=== PATIENT | male | born 1975 | race Hispanic/Latino ===

== ENCOUNTER 2017-10-18 09:05 | Observation (INO) | payer OTHER ==
[2017-10-18] MEDS ORDERED: Vancomycin 1gm in NS 250ml 1 GM/250 ML BAG IVPB STA (09:33)
[2017-10-18] MEDS ORDERED: DiphenhydrAMINE 50 mg/ml Inj IVP STA (09:33)
--- NOTE | 2017-10-18 09:34 | ED PDOC ---
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 anterior aguirre itching/swelling and pain which progress to the lower anterior aguirre region, no pain or swelling on the posterior calf or thigh region, no knee pain, no fever or chills, no headache or night sweat, no difficulty walking, no other medical or psychiatric complaints. Past Medical History - Provider Review Nursing Documentation Reviewed: Yes - Infectious Disease Hx of Infectious Diseases: None - Tetanus Immunization Tetanus Immunization: Unknown - Cardiac Hx Cardiac Disorders: Yes Hx Hypertension: Yes - Pulmonary Hx Respiratory Disorders: Yes Hx Asthma: Yes Hx Chronic Obstructive Pulmonary Disease (COPD): Yes - Neurological Hx Neurological Disorder: Yes HX Cerebrovascular Accident: Yes - HEENT Hx HEENT Disorder: No - Renal Hx Renal Disorder: No - Endocrine/Metabolic Hx Endocrine Disorders: No - Hematological/Oncological Hx Blood Disorders: No - Integumentary Hx Dermatological Disorder: No - Musculoskeletal/Rheumatological Hx Musculoskeletal Disorders: No - Gastrointestinal Hx Gastrointestinal Disorders: Yes - Genitourinary/Gynecological Hx Genitourinary Disorders: No - Psychiatric Hx Psychophysiologic Disorder: No Hx Substance Use: No - Surgical History Hx Cardiac Catheterization: Yes Hx Valve Replacement: Yes Other/Comment: HERNIA REPAIR - Anesthesia Hx Anesthesia: Yes Hx Anesthesia Reactions: No Hx Malignant Hyperthermia: No - Suicidal Assessment Feels Threatened In Home Enviroment: No Family/Social History - Physician Review Nursing Documentation Reviewed: Yes Family/Social History: Unknown Family HX Smoking Status: Never Smoked Hx Alcohol Use: No Hx Substance Use: No Hx Substance Use Treatment: No Allergies/Home Meds Allergies/Adverse Reactions: Allergies No Known Allergies Allergy (Verified 10/18/17 09:09) Home Medications: Home Meds Medication Instructions Recorded Confirmed Fluticasone/Umeclidin/Vilanter 1 puff NEB DAILY 10/18/17 10/18/17 [Trelesofie Ellipta 100-62.5-25] Review of Systems - Review of Systems Constitutional: absent: Fatigue, Fevers Eyes: absent: Vision Changes ENT: absent: Hearing Changes Respiratory: absent: SOB, Cough Cardiovascular: absent: Chest Pain Gastrointestinal: absent: Abdominal Pain, Nausea, Vomiting Skin: Rash, Pruritis, Skin Lesions, Cellulitis. absent: Laceration, Abscess, Ulcer Neurological: absent: Headache, Dizziness Psychiatric: absent: Anxiety, Depression, Suicidal Ideation Physical Exam Vital Signs Reviewed: Yes Vital Signs Temp Pulse Resp BP Pulse Ox 10/18/17 09:10 98.7 F 86 16 145/83 96 Temperature: Afebrile Blood Pressure: Normal Pulse: Regular Respiratory Rate: Normal Appearance: Positive for: Well-Appearing, Non-Toxic, Comfortable Pain Distress: Mild Mental Status: Positive for: Alert and Oriented X 3 - Systems Exam Head: Present: Atraumatic, Normocephalic Pupils: Present: PERRL Extroacular Muscles: Present: EOMI Conjunctiva: Present: Normal Mouth: Present: Moist Mucous Membranes Neck: Present: Normal Range of Motion Respiratory/Chest: Present: Clear to Auscultation, Good Air Exchange. No: Respiratory Distress, Accessory Muscle Use Cardiovascular: Present: Regular Rate and Rhythm, Normal S1, S2. No: Murmurs Abdomen: No: Tenderness, Distention, Peritoneal Signs Back: Present: Normal Inspection Upper Extremity: Present: Normal Inspection. No: Cyanosis, Edema Lower Extremity: Present: Normal Inspection, NORMAL PULSES, Normal ROM, Neurovascularly Intact, Capillary Refill < 2 s, Other (Lt. lower extremity: visible anterior proximal 1/3 of the aguirre noted to have erythematous with visible swelling hive region approx. [id number] but warmth spreading to the distal 1/3 of the aguirre with pink color rash but no circumferential rash, negative randee and wyman signs, FROM without limitation, sensation intact, motor 5/5, +DPPT pulses, capillary refill< 2 seconds, neurovascular intact. ). No: Edema, CALF TENDERNESS, Randee's Sign, Deformity Neurological: Present: GCS=15, CN II-XII Intact, Speech Normal Skin: Present: Warm, Dry, Normal Color. No: Rashes Psychiatric: Present: Alert, Oriented x 3, Normal Insight, Normal Concentration Medical Decision Making ED Course and Treatment: 10/18/17 09:40 Differential: cellulitis vs. dermatitis vs. gout -labs/ua -Lt. knee xray -IV vancomycin/toradol/benadryl -Observe and reassess 10/18/17 11:40 -Labs are non-significant with no elevation of wbc -Lt. knee xray show Normal radiographs of the left knee. -Lt. lower extremity erythematous is persistent, will need observation for IV antibiotic, blood cultures ordered. -I discussed all labs/radiology result with the patient, he agreed to be admitted for observation and IV antibiotic due to the extensive of the cellulitis. -I spoke to Dr. Vidal, covering doctor for Dr. Carnes, discussed about the case/labs/radiology result, agreed to admit to her service with Dr. Parsons for routine consult, consult ordered. -Dr. Quiles would put in the admission order. - Lab Interpretations Lab Results: 10/18/17 10:10 10/18/17 10:10 Lab Results 10/18/17 10:10: WBC 10.3, RBC 5.02, Hgb 14.6, Hct 41.5 L, MCV 82.7, MCH 29.1, MCHC 35.2, RDW 13.5, Plt Count 247, MPV 8.7, Gran % 71.0 H, Lymph % (Auto) 19.7 L, Harmon % (Auto) 7.8 H, Eos % (Auto) 1.2 L, Baso % (Auto) 0.3, Gran # 7.34 H, Lymph # (Auto) 2.0, Harmon # (Auto) 0.8 H, Eos # (Auto) 0.1, Baso # (Auto) 0.03 10/18/17 10:10: Sodium 140, Potassium 4.1, Chloride 100, Carbon Dioxide 28, Anion Gap 16, BUN 18, Creatinine 0.9, Est GFR ( Amer) > 60, Est GFR (Non- Af Amer) > 60, Random Glucose 114 H, Uric Acid 7.4, Calcium 9.6, Total Bilirubin 0.5, AST 26, ALT 44, Alkaline Phosphatase 62, Total Protein 7.9, Albumin 4.5, Globulin 3.4, Albumin/Globulin Ratio 1.3 I have reviewed the lab results: Yes - RAD Interpretation Radiology Orders: 10/18/17 09:33 KNEE WITH PATELLA LEFT 3 VIEW [RAD] Stat Date of service: 10/18/2017 PROCEDURE: Left Knee and patella Radiographs. HISTORY: Pain. COMPARISON: None. FINDINGS: BONES: Normal. No fracture. JOINTS: Normal. No osteoarthritis. JOINT EFFUSION: None. OTHER FINDINGS: None. IMPRESSION: Normal radiographs of the left knee. Group Segment Consultant: Radiologist - Medication Orders Current Medication Orders: Discontinued Medications Diphenhydramine HCl (Benadryl) 50 mg IVP STAT STA Stop: 10/18/17 09:34 Last Admin: 10/18/17 10:10 Dose: 50 mg IVP Administration Document 10/18/17 10:10 MOON (Rec: 10/18/17 10:10 MOON [id number]) Charges for Administration # of IVP Administrations 1 Vancomycin HCl (Vancomycin 1gm) 1 gm in 250 mls @ 167 mls/hr IVPB STAT STA PRN Reason: Protocol Stop: 10/18/17 11:02 Last Admin: 10/18/17 10:11 Dose: 167 mls/hr eMAR Start Stop Document 10/18/17 10:11 MOON (Rec: 10/18/17 10:11 MOON [id number]) Intravenous Solution Start Date 10/18/17 Start Time 10:11 End Date 10/18/17 End time 11:41 Total Infusion Time 90 Ketorolac Tromethamine (Toradol) 30 mg IVP STAT STA Stop: 10/18/17 09:34 Last Admin: 10/18/17 10:10 Dose: 30 mg MAR Pain Assessment Document 10/18/17 10:10 LA (Rec: 10/18/17 10:11 MOON [id number]) Pain Reassessment Is this a pain reassessment? No Sleep Is patient sleeping during reassessment? 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 Disposition/Present on Arrival - Present on Arrival Any Indicators Present on Arrival: No History of DVT/PE: No History of Uncontrolled Diabetes: No Urinary Catheter: No History of Decub. Ulcer: No History Surgical Site Infection Following: None - Disposition Have Diagnosis and Disposition been Completed?: Yes Diagnosis: Cellulitis of lower extremity Disposition: HOSPITALIZED Disposition Time: 11:17 Patient Plan: Admission, Observation Patient Problems: Current Active Problems Problem Status Onset Cellulitis of lower extremity Acute Condition: STABLE Discharge Instructions (ExitCare): Cellulitis (ED) Referrals: Lennox Carnes MD [Primary Care Provider] - Follow up with primary Forms: [employer] (Chinese)
[2017-10-18 10:31] LABS: BASO # 0.03 K/mm3 (0.0-2.0); BASO % 0.3 % (0.0-3.0); EOS # 0.1 (0.0-0.7); EOS % 1.2 % (1.5-5.0); GRAN # 7.34 (1.4-6.5); HEMOGLOBIN 14.6 g/dL (14.0-18.0); LYMPH % 19.7 % (22.0-35.0); MEAN CELL VOLUME 82.7 fl (80.0-105.0); MEAN CORPUSCULAR HEMOGLOBIN 29.1 pg (25.0-35.0); MEAN CORPUSCULAR HGB CONC 35.2 g/dl (31.0-37.0); MEAN PLATELET VOLUME 8.7 fl (7.0-11.0); MONO # 0.8 (0.1-0.6); MONO % 7.8 % (1.0-6.0); RBC 5.02 10^6/uL (3.5-6.1); RED CELL DISTRIBUTION WIDTH 13.5 % (11.5-14.5); WHITE BLOOD COUNT 10.3 10^3/ul (4.5-11.0)
[2017-10-18 10:47] LABS: ALB/GLOB RATIO 1.3 (1.1-1.8); ALBUMIN 4.5 g/dL (3.0-4.8); ALT/SGPT 44 U/L (7-56); AST/SGOT 26 U/L (17-59); BLOOD UREA NITROGEN 18 mg/dL (7-21); CALCIUM 9.6 mg/dL (8.4-10.5); GFR AFRICAN-AMERICAN > 60; GFR NON-AFRICAN AMERICAN > 60; URIC ACID 7.4 mg/dL (3.5-8.5)
--- NOTE | 2017-10-18 11:12 | RAD ---
Date of service: 10/18/2017 PROCEDURE: Left Knee and patella Radiographs. HISTORY: Pain. COMPARISON: None. FINDINGS: BONES: Normal. No fracture. JOINTS: Normal. No osteoarthritis. JOINT EFFUSION: None. OTHER FINDINGS: None. IMPRESSION: Normal radiographs of the left knee.
[2017-10-18] MEDS ORDERED: Morphine 5 MG/ML SYRINGE IVP STA (12:15)
--- NOTE | 2017-10-18 16:33 | CP.PCM.CON ---
History of Present Illness - History of Present Illness History of Present Illness: 42 year old male with PMH of coarctation of the aorta, morbid obesity with BMI 54, COPD, history leg cellulitis, S/P right knee surgery for torn meniscus, HTN , history of CVA, S/P hernia repair, came in to [facility] complaining of pain and swelling of his left leg which started about 2 days ago. He felt that his anterior proximal leg area was itchy and he started scratching. He denies animal contacts, no trauma, no insect bites, no fever or chills, no nausea or vomiting, no chest pain, no SOB, no headache or dizziness, no abdominal pain, no diarrhea, no dysuria. He denies soaking his feet in water, has not traveled to wooded areas. The pain in his left leg is making ambulation difficult. Infectious diseases consult is requested to further evaluate and manage. Review of Systems - Review of Systems All systems: reviewed and no additional remarkable complaints except (as per HPI ) Past Patient History - Infectious Disease Hx of Infectious Diseases: None - Tetanus Immunizations Tetanus Immunization: Unknown - Past Social History Smoking Status: Never Smoked - CARDIAC Hx Cardiac Disorders: Yes Hx Hypertension: Yes - PULMONARY Hx Respiratory Disorders: Yes Hx Asthma: Yes Hx Chronic Obstructive Pulmonary Disease (COPD): Yes - NEUROLOGICAL Hx Neurological Disorder: Yes HX Cerebrovascular Accident: Yes - HEENT Hx HEENT Problems: No - RENAL Hx Chronic Kidney Disease: No - ENDOCRINE/METABOLIC Hx Endocrine Disorders: No - HEMATOLOGICAL/ONCOLOGICAL Hx Blood Disorders: No - INTEGUMENTARY Hx Dermatological Problems: No - MUSCULOSKELETAL/RHEUMATOLOGICAL Hx Musculoskeletal Disorders: No - GASTROINTESTINAL Hx Gastrointestinal Disorders: Yes - GENITOURINARY/GYNECOLOGICAL Hx Genitourinary Disorders: No - PSYCHIATRIC Hx Psychophysiologic Disorder: No Hx Substance Use: No - SURGICAL HISTORY Hx Cardiac Catheterization: Yes Hx Valve Replacement: Yes Other/Comment: HERNIA REPAIR - ANESTHESIA Hx Anesthesia: Yes Hx Anesthesia Reactions: No Hx Malignant Hyperthermia: No Meds Allergies/Adverse Reactions: Allergies Allergy/AdvReac Type Severity Reaction Status Date / Time No Known Allergies Allergy Verified 10/18/17 09:09 Physical Exam - Constitutional Appears: Non-toxic - Head Exam Head Exam: NORMAL INSPECTION - ENT Exam ENT Exam: Mucous Membranes Moist - Neck Exam Neck exam: Negative for: Lymphadenopathy, Meningismus - Respiratory Exam Respiratory Exam: absent: Rales, Rhonchi - Cardiovascular Exam Cardiovascular Exam: +S1, +S2 - GI/Abdominal Exam GI & Abdominal Exam: Soft. absent: Tenderness - Extremities Exam Additional comments: left anterior leg with swelling, erythema and tenderness, no open wounds, discharge or bleeding Results - Vital Signs Recent Vital Signs: Last Vital Signs Temp 98.7 F 10/18/17 13:01 Pulse 90 10/18/17 13:01 Resp 18 10/18/17 13:01 BP 127/68 10/18/17 13:01 Pulse Ox 98 10/18/17 13:01 - Labs Result Diagrams: 10/18/17 10:10 10/18/17 10:10 Assessment & Plan - Assessment and Plan (Free Text) Plan: Assessment Left leg cellulitis coarctation of the aorta morbid obesity with BMI 54 COPD history leg cellulitis S/P right knee surgery for torn meniscus HTN history of CVA S/P hernia repair Plan Started the patient on Teflaro pending blood cx and will monitor clinical response; reviewed knee xray discussed with Dr. Vidal
[2017-10-18] MEDS ORDERED: Morphine 5 MG/ML SYRINGE IVP PRN (17:33)
[2017-10-18] MEDS ORDERED: Morphine 4 mg/ml ISec IVP PRN (17:51)
[2017-10-18 22:13] VITALS: BMI 53.7
[2017-10-18] MEDS ORDERED: Pneumococcal 23-Valent Vaccine IM ONE (22:14)
--- NOTE | 2017-10-18 23:50 | HP ---
HISTORY OF PRESENT ILLNESS: Patient is 42 years old, came to emergency room because of increasing pain in the left aguirre since yesterday. 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 When he woke up this morning, his left aguirre was red and painful, so he came to emergency room for further evaluation. Denies any fever or chills. No history of nausea or vomiting. No history of trauma to the area. He had similar episode of cellulitis multiple years ago and he was treated with IV antibiotic. PAST MEDICAL HISTORY: He has significant past medical history of: 1. Coarctation of aorta. For that he had surgical intervention done in 1974. 2. Morbid obesity. 3. History of right knee surgery for meniscus tear. 4. Hypertension. 5. History of CVA in remote past. 6. History of hernia repair. 7. 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 ALLERGIES: HE IS NOT ALLERGIC TO ANY MEDICATIONS. MEDICATIONS AT HOME: He is on some inhaler, but he does not recall the name and he takes Trelegy. SOCIAL HISTORY: He is , lives with his . Denies smoking, drinking, or alcohol use. REVIEW OF SYSTEMS: Significant for morbid obesity and left aguirre pain and redness. PHYSICAL EXAMINATION: GENERAL: He is awake, alert, oriented, communicative. VITAL SIGNS: He is afebrile, pulse 90, respirations 18, blood pressure 127/68. LUNGS: Bilateral fair airflow. No rhonchi or crackle. HEART: S1 and S2 audible. ABDOMEN: Soft, obese, nontender. No rebound. No guarding. NEUROLOGICAL: He is awake, alert, oriented, communicative. Moves all extremities. LABORATORY DATA: WBC 10.3, hemoglobin 14.6, hematocrit 41.5, platelets 247. Chemistry: Sodium 140, potassium 4.1, chloride 100, CO2 of 28, BUN 18, creatinine 0.9, blood sugar 114. LFTs are within normal limits. ASSESSMENT: 1. Left aguirre cellulitis. 2. Morbid obesity. 3. History of coarctation of aorta. 4. History of Ross procedure. 5. History of sleep apnea. PLAN: Patient is currently on morphine 5 mg every 6 hours. He is on Teflaro. He was given a dose of vancomycin and we will give him 3 doses of Lasix. Monitor his blood sugar and blood pressure. Follow up blood cultures. We will follow up CBC and CMP in a.m. Pablo Vidal MD
[2017-10-19 07:25] LABS: BASO # 0.04 K/mm3 (0.0-2.0); BASO % 0.5 % (0.0-3.0); EOS # 0.1 (0.0-0.7); EOS % 1.9 % (1.5-5.0); GRAN # 4.55 (1.4-6.5); GRAN % 60.4 % (50.0-68.0); HEMOGLOBIN 13.4 g/dL (14.0-18.0); LYMPH # 2.2 (1.2-3.4); LYMPH % 28.7 % (22.0-35.0); MEAN CELL VOLUME 84.1 fl (80.0-105.0); MEAN CORPUSCULAR HGB CONC 33.3 g/dl (31.0-37.0); MEAN PLATELET VOLUME 8.8 fl (7.0-11.0); MONO # 0.6 (0.1-0.6); MONO % 8.5 % (1.0-6.0); RBC 4.78 10^6/uL (3.5-6.1); RED CELL DISTRIBUTION WIDTH 13.6 % (11.5-14.5); WHITE BLOOD COUNT 7.5 10^3/ul (4.5-11.0)
[2017-10-19 07:36] LABS: ALB/GLOB RATIO 1.3 (1.1-1.8); ALBUMIN 4.1 g/dL (3.0-4.8); ALT/SGPT 39 U/L (7-56); AST/SGOT 30 U/L (17-59); BLOOD UREA NITROGEN 20 mg/dL (7-21); CALCIUM 9.1 mg/dL (8.4-10.5); GFR AFRICAN-AMERICAN > 60; GFR NON-AFRICAN AMERICAN > 60
--- NOTE | 2017-10-19 10:35 | PN ---
DATE: 10/19/2017 SUBJECTIVE: The patient is in bed, in no acute distress, nontoxic, was seen earlier today in 571, bed 2. PHYSICAL EXAMINATION: VITAL SIGNS: Temperature is 98, blood pressure is 130/80, respiratory rate of 20, heart rate of 68. HEENT: Examination of HEENT is unremarkable. NECK: Supple. LUNGS: Have decreased breath sounds. HEART: Normal S1, S2. ABDOMEN: Soft, nontender. LABORATORY DATA: Laboratory examination reveals a white count of 7.5, hemoglobin of 13, platelets of 231. Chemistries reveals a BUN of 20, creatinine of 1. Microbiology is noted. ASSESSMENT AND PLAN: A 42-year-old male with super morbid obesity with a body mass index of 54, chronic obstructive lung disease and coarctation of aorta, who was admitted with left leg cellulitis, started on Teflaro. The review of medications reveals Teflaro. We will follow closely with you. Jass Parsons MD
[2017-10-19 21:16] VITALS: PULSE 82; RESP 18; TEMP 98.2; O2SAT 98
--- NOTE | 2017-10-20 01:05 | PN ---
DATE: 10/19/2017 SUBJECTIVE: The patient is 42-year-old, seen and examined, still complaining of pain in the left aguirre, still has erythema. No nausea, vomiting, or diarrhea. PHYSICAL EXAMINATION: VITAL SIGNS: The patient is afebrile, pulse 80, respirations 20, blood pressure 141/96. LUNGS: Bilateral fair airflow. No rhonchi or crackle. HEART: S1, S2 audible. ABDOMEN: Soft, obese, nontender. No rebound, no guarding. NEUROLOGIC: He is awake, alert, oriented, communicative. LABORATORY DATA: WBC 7.5, hemoglobin 13.4, hematocrit 40, platelets 231. Chemistry: Sodium 141, potassium 3.9, chloride 99, CO2 of 31, BUN 20, creatinine 1, blood sugar 111. ASSESSMENT: 1. Left aguirre cellulitis. 2. Morbid obesity. 3. Obstructive sleep apnea. 4. History of Ross procedure in the past. 5. History of coarctation of aorta, status post resection and end-to-end anastomosis. PLAN: Currently, the patient is on diuretics. We will continue him on analgesic as needed. He is on Teflaro. ID input is noted and appreciate. We will continue on medication as recommended by ID. Pablo Vidal MD
[2017-10-20 11:10] VITALS: BP 138/98
--- NOTE | 2017-10-20 11:32 | PN ---
DATE: 10/20/2017 SUBJECTIVE: The patient is in bed, in no acute distress. PHYSICAL EXAMINATION: VITAL SIGNS: Temperature is 98, blood pressure is 160/100, respiratory rate of 18. HEENT: Unremarkable. NECK: Supple. LUNGS: Have decreased breath sounds. HEART: Normal S1, S2. ABDOMEN: Soft, nontender. EXTREMITIES: Examination of leg is much improved, will resolve. LABORATORY EXAMINATION: Reveals blood cultures are negative. White count is normal. Chemistries are noted and the patient does have elevated blood sugar. Dr. Vidal's note is reviewed. Review of orders reveals the patient to be on ceftaroline. ASSESSMENT AND PLAN: A 42-year-old male with super morbid obesity with prediabetes as per the patient, chronic obstructive lung disease, coarctation of aorta with a left leg cellulitis, which has resolved nicely. We will continue the Teflaro and use Zyvox p.o. at 600 mg p.o. b.i.d. 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 We would complete 5 days of p.o. Zyvox. Maybe discharged from Infectious Disease point of view. 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 Jass Parsons MD
--- NOTE | 2017-10-21 12:10 | DS ---
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 The patient stated 3 days ago when he came out of his work and he was helping on his truck, he noticed he had some pain in his left knee joint and noticed redness of the leg. He went home to rest, and the next day he woke up with more redness of his left aguirre area. No history of fever or chills. No history of nausea or vomiting. No history of trauma to the area. So, he came to the emergency room for evaluation. The patient states he had similar episode a couple of years ago, was treated with antibiotics and diuretics. PAST MEDICAL HISTORY: He has significant past medical history for history of coarctation of aorta that he was operated on in his childhood and he also had Ross procedure where he had his valve repaired. PHYSICAL EXAMINATION: GENERAL: Today, he is awake, alert, oriented, and communicative. VITAL SIGNS: He is afebrile, pulse 82, respirations 18, blood pressure 138/90. LUNGS: Bilateral fair airflow. No rhonchi or crackle. HEART: S1 and S2 audible. ABDOMEN: Soft, obese, nontender. No rebound. No guarding. NEUROLOGICAL: The patient is awake, alert, oriented, able to communicate. EXTREMITIES: Left leg erythema has significantly improved. Still has some pain in the left knee. LABORATORY DATA: He has x-ray of chest done that was unremarkable. X-ray of the knee is also unremarkable. ASSESSMENT: 1. Left aguirre cellulitis, improved. 2. Morbid obesity. 3. History of Ross procedure in the childhood. 4. History of coarctation of aorta surgery in the past. PLAN: The patient was evaluated by ID and was recommended to discharge him on Zyvox 600 twice a day for five days, he was given Lasix 20 mg daily for one week, and he was advised to keep his leg elevated. Follow up with . Pablo Vidal MD
== END 2017-10-20 13:43 | disposition home or self-care (01) ==
LOC: ED 09:05 → ERH 11:44 → 5RNO 13:07 → 5RSO 14:48
PROVIDERS: ADMIT Internal Medicine; ATTEND Internal Medicine
DX: L03.116 Cellulitis of left lower limb (principal); I10 Essential (primary) hypertension; E66.01 Morbid (severe) obesity due to excess calories; Z68.43 Body mass index [BMI] 50.0-59.9, adult; J44.9 Chronic obstructive pulmonary disease, unspecified; G47.33 Obstructive sleep apnea (adult) (pediatric); Z95.2 Presence of prosthetic heart valve; Z86.73 Personal history of transient ischemic attack (TIA), and cerebral infarction without residual deficits
CPT/HCPCS: 36415; 73562; 80053; 84550; 85025; 87040; 96365; 96366; 96367; 96375; 96376; 99283; G0378; J0712; J1200; J1885; J1940; J2270